=== PATIENT | male | born 1995 | race African-American/Black ===

== ENCOUNTER 2018-06-18 12:49 | Emergency (ER) | payer OTHER ==
[~2018-06-18] VITALS: Ht 172.7 cm; Wt 54.4 kg
[2018-06-18 15:48] VITALS: BP 114/75
== END 2018-06-18 15:48 | disposition home or self-care (01) ==
LOC: ER 12:49
DX: J02.9 Acute pharyngitis, unspecified (principal); R59.1 Generalized enlarged lymph nodes; F41.9 Anxiety disorder, unspecified